=== PATIENT | female | born 1980 | race Hispanic/Latino ===

== ENCOUNTER 2016-11-15 16:50 | Emergency (ER) | payer SELFPAY ==
[2016-11-15] MEDS ORDERED: XOPENEX IH ONE ×3 (16:54→19:49)
--- NOTE | 2016-11-15 17:00 | Emergency Department Report ---
Stated Complaint: DIFF BREATHING Time Seen by Provider: 11/15/16 16:57 - HPI History of Present Illness: Patient was recently treated for Bronchitis one week ago, however symptoms continue to persist. She c/o difficulty breathing with a productive cough - ROS Review of Systems: all other systems are unremarkable except for documentation in HPI - Exam Physical Exam: Gen: well developed and nourished, uncomfortable Resp: even and labored, lungs slightly diminished with wheezes, no rhonchi noted MSE screening note: Focused history and physical exam performed. Due to findings the following was ordered: resp tx and radiology study ordered ED Disposition for MSE Condition: Stable
--- NOTE | 2016-11-15 17:24 | Emergency Department Report ---
[id number]/07/24 17:16 - HPI HPI: This is a 36-year-old female presents to the emergency department with complaint of a one-week history of shortness of breath, mixed dry and productive cough, and now patient has a more recent history of nausea with vomiting, headache and says that she has been coughing so much she is seen some blood in the phlegm. Patient was at a hospital in [place] 5 days ago and was diagnosed with bronchitis and discharged home on azithromycin. She says she isn 't taken his compliantly without any relief. She has a past medical history of endometriosis and asthma. She's been using her home inhaler without any relief. No recent travel or sick contacts at home. She denies tobacco or illicit drug use or abuse. Her primary care doctor is a Dr. Linton. Patient also has a history of mood disorder and anxiety. ED Review of Systems ROS: Stated complaint: DIFF BREATHING Other details as noted in HPI Comment: All other systems reviewed and negative Constitutional: denies: chills, fever Eyes: denies: eye pain, eye discharge, vision change ENT: denies: ear pain, throat pain Respiratory: cough, shortness of breath Cardiovascular: denies: chest pain, palpitations Gastrointestinal: nausea, vomiting. denies: abdominal pain Genitourinary: denies: urgency, dysuria, discharge Musculoskeletal: denies: back pain, joint swelling, arthralgia Skin: denies: rash, lesions Neurological: headache. denies: weakness, numbness, paresthesias Psychiatric: denies: auditory hallucinations, visual hallucinations, homicidal thoughts, suicidal thoughts Physical Exam - Physical Exam Vital Signs: Vital Signs 11/15/16 11/15/16 16:52 17:03 Temperature 98.3 F Pulse Rate 127 H Pulse Rate [ 109 H Anterior Bilateral Throughout] Respiratory 38 H Rate Respiratory 25 H Rate [Anterior Bilateral Throughout] Blood Pressure 91/67 O2 Sat by Pulse 97 Oximetry Physical Exam: GENERAL: The patient is well-developed well-nourished. HEENT: Normocephalic. Atraumatic. Extraocular motions are intact. Patient has moist mucous membranes. Pupils equal reactive to light bilaterally. NECK: Supple. Trachea is midline. CHEST/LUNGS: Clear to auscultation. Mild tachypnea but no accessory muscle use. There is no respiratory distress noted. HEART/CARDIOVASCULAR: Regular. There is mild tachycardia. There is no gallop rub or murmur. ABDOMEN: Abdomen is soft, nontender. Patient has normal bowel sounds. There is no abdominal distention. SKIN: There is no rash. There is no edema. There is no diaphoresis. NEURO: The patient is awake, alert, and oriented. The patient is cooperative. The patient has no focal neurologic deficits. The patient has normal speech. MUSCULOSKELETAL: There is no tenderness or deformity. There is no limitation range of motion. There is no evidence of acute injury. ED Course Vital Signs 11/15/16 11/15/16 16:52 17:03 Temperature 98.3 F Pulse Rate 127 H Pulse Rate [ 109 H Anterior Bilateral Throughout] Respiratory 38 H Rate Respiratory 25 H Rate [Anterior Bilateral Throughout] Blood Pressure 91/67 O2 Sat by Pulse 97 Oximetry ED Medical Decision Making - Lab Data Result diagrams: 11/15/16 17:31 11/15/16 17:31 - EKG Data -: EKG Interpreted by Me EKG shows normal: sinus rhythm, axis, intervals, QRS complexes, ST-T waves Rate: normal - EKG Data When compared to previous EKG there are: previous EKG unavailable Interpretation: normal EKG - Radiology Data Radiology results: image reviewed interpreted by me: Chest x-ray did not show any acute process. Heart is normal shape and size. No effusions. No pneumothorax. No signs of pneumonia seen. - Medical Decision Making 36-year-old presents with complaint of 5 days to 1 week of shortness of breath and lingering cough. Patient does have some abnormal appearing vitals through triage with some tachycardia and tachypnea but the patient has never had any fever or hypoxia. By the time the patient was back in the main portion of the emergency department and I was able to see her, the vitals were greatly improved. The patient herself have very mild tachycardia and tachypnea but did not appear to be in any respiratory distress. There was no accessory muscle use or conversational dyspnea. Patient was given some Solu-Medrol, magnesium and breathing treatments. Patient complained of a headache so she was given a very small amount of pain medication. Since she got the pain medication she was already asking for much more and in much larger doses. It was explained that this is detrimental to her especially in someone who is complaining of shortness of breath but she was adamant about getting more narcotic pain medication. Therefore this prompted me to look into the patient's [facility] prescription monitoring system history. Patient was found to fill 90 Treadwell 10/ 325 mg, 90 lorazepam, monthly Ambien, among other medications. Patient had a chest x-ray that did not show any signs of pneumonia, CHF, pneumothorax or any acute process. Her EKG was completely normal without signs of ST elevation ID, arrhythmia or ischemia. Patient's labs did not show any leukocytosis, electrolyte abnormalities, renal insufficiency. She had a negative d-dimer and a BNP that was about 15. Patient does not appear in any distress. When the patient was notified that she would be treated appropriately for probable bronchitis versus viral URI, she became very upset that she was not getting any narcotic pain medication. She has good follow-up with a primary care doctor but says she cannot afford the $80 to see them. Patient was given another breathing treatment and was going to be treated with a cough suppressant and course of steroids but she decided she would rather sign out AGAINST MEDICAL ADVICE. - Differential Diagnosis bronchitis, URI, pneumonia, CHF, PE Critical Care Time: No Critical care attestation.: If time is entered above; I have spent that time in minutes in the direct care of this critically ill patient, excluding procedure time. ED Disposition Clinical Impression: Bronchitis, Cough, Drug-seeking behavior Disposition: LEFT AGAINST MEDICAL ADVICE Is pt being admited?: No Condition: Stable Instructions: Chronic Bronchitis (ED) Referrals: PRIMARY CARE, [Primary Care Provider] - 3-5 Days Forms: AMA Form Time of Disposition: 21:26
[2016-11-15] MEDS ORDERED: DILAUDID ONE (17:30)
[2016-11-15] MEDS ORDERED: MAGNESIUM SULFATE 2GM/50ML 50 ML IV ONE ×2 (17:31)
[2016-11-15] MEDS ORDERED: DILAUDID IV ONE ×2 (17:32→19:38)
[2016-11-15] MEDS ORDERED: ZOFRAN IV ONE (17:32)
[2016-11-15] MEDS ORDERED: NACL 0.9% 1000 ML 1,000 ML IV ONE (17:32)
[2016-11-15 17:48] LABS: Basophils % (Auto) 0.6 % (0.0-1.8); Eosinophils % (Auto) 1.4 % (0.0-4.3); Hematocrit 43.8 % (30.3-42.9); Hemoglobin 14.7 gm/dl (10.1-14.3); Mean Corpuscular HGB Conc 34 % (30-34); Mean Corpuscular Hemoglobin 32 pg (28-32); Mean Corpuscular Volume 94 fl (79-97); Platelet Count 301 K/mm3 (140-440); Red Blood Count 4.66 M/mm3 (3.65-5.03); White Blood Count 9.1 K/mm3 (4.5-11.0)
--- NOTE | 2016-11-15 19:18 | Admit Criteria Form ---
Admission Criteria Documentation: PULMONARY DISEASE GRG Clinical Indications for Admission to Inpatient Care ( Place 'X' for any and all applicable criteria): Hospital admission is needed for appropriate care of the patient because of ANY ONE of the following(1): [ ]I. Impending or actual respiratory arrest ( Use Respiratory Failure Criteria for severe respiratory disease and long-term mechanical ventilation patients) (4) [X ]II. Severe airflow or ventilation abnormalities (not responsive to emergency and observation care treatment as appropriate) as indicated by ANY ONE of the following(5)(6)(7)(8) : [ ]a) PCO2 > 42 mm Hg (5.6 kPa) and pH < 7.35 (new) [ ]b) Documented PCO2 increase > 5 mm Hg (0.7 kPa) from disease baseline [ ]c) Airflow measurements[A] < 60% of previous best or predicted ( e.g., PEF <300 L/minute) despite intensive emergent treatment[B] [ X]d) Required respiratory treatments that are performable only in acute inpatient setting [ ]III. Severe respiratory findings (not responsive to emergency and observation care treatment as appropriate) including ANY ONE of the following(5)(8)(9): [ ]a) Respiratory distress as indicated by ALL of the following(5)(10): [ ]i) Patient with ANY ONE of the following: [ ]1) Dyspnea (difficulty breathing) [ ]2) Abnormal breathing pattern (eg, chest retractions) [ ]3) Tachypnea [ ]4) Other evidence of difficulty breathing [ ]ii) Evidence of respiratory compromise indicated by ANY ONE of the following: [ ]1) Hypoxemia [ ]2) Altered mental status [ ]3) Other evidence of respiratory compromise (eg, pulmonary edema on chest x-ray) [ ]b) Stridor [ ]c) Gross hemoptysis(11) [ ]d) Acute cyanosis [ ]IV. High-risk pulmonary infection as indicated by ANY ONE of the following( 19)(20)(21)(22): [ ]a) Temperature less than 95 degrees F(35 degrees C) or greater than 103.1 degrees F(39.5 degrees C) [ ]b) Hemodynamic instability that remains after emergency or observation level care (as appropriate) [ ]c) Immunocompromised patient (eg, AIDS, post transplant, neutropenic) [ ]d) History of severe COPD [ ]e) History of severely symptomatic congestive heart failure [ ]f) Other high-risk comorbidity (eg, poorly controlled diabetes, cirrhosis, chronic renal insufficiency) [ ]g) Hypoxemia (new) [ ]h) Outpatient, observation, or recovery facility therapy has failed, is not appropriate, or is not feasible [ ]V. Severe atelectasis or lung collapse(15)(16) [ ]. Tuberculosis requiring inpatient treatment as indicated by ANY ONE of the following(17)(18): [ ]a) New positive acid-fast bacilli sputum smear [ ]b) Positive acid-fast bacilli smear (under current treatment), with ANY ONE of the following: [ ]i) Unexposed household contacts [ ]ii) Infants or immunosuppressed household contacts [ ]iii) Patient unable or unwilling to avoid exposing others [ ]iv) Severe immunocompromised patient (eg, AIDS, post transplant, neutropenic) [ ]VII. Empyema or lung abscess(13)(14) [ ]VIII. Severe pulmonary arterial hypertension or pulmonary vascular disease requiring inpatient care indicated by ANY ONE of the following(24)(25): [ ]a) Initiation or change of vasodilators (IV, subcutaneous, or inhaled) or other vasoactive medications needed [ ]b) IV anticoagulation needed (eg, immediate anticoagulation necessary, alternatives not appropriate) [ ]c) Arterial or pulmonary artery catheter monitoring needed due to infusion or other treatment [ ]IX. Chronic lung disease with severe deterioration (not responsive to emergency and observation care treatment as appropriate) as indicated by ANY ONE of the following (6)(12): [ ]a) SaO2 5% below baseline in patient with chronic hypoxemia [ ]b) New requirement for supplemental oxygen to keep SaO2 at baseline or acceptable level [ ]c) Required supplemental oxygen performable only in acute inpatient setting [ ]d) Severe airflow or ventilation abnormalities [ ]e) Rapid rate of exacerbation onset [ ]f) Previously mobile patient unable to walk between rooms [ ]g) Inability to eat or sleep due to dyspnea [ ]h) Altered mental status [ ]X. Cystic fibrosis with severe deterioration as indicated by ANY ONE of the following(26)(27): [ ]a) Severe exacerbation that does not respond to intensified home therapy [ ]b) Pneumonia [ ]c) Hemoptysis [ ]d) Atelectasis [ ]e) Pneumothorax [ ]f) Respiratory failure [ ]g) Severe exacerbation with patient unable to perform prescribed treatments at home [ ]XI. Severe right heart failure as indicated by ANY ONE of the following(24) (25): [ ]a) Increasing organ failure (eg, liver congestion with significant and worsening or new elevation of transaminases) [ ]b) Anasarca [ ]c) Angina that requires inpatient care (eg, not treatable in emergency or observation level of care) [ ]d) Respiratory distress [ ]e) Syncope [ ]f) SBP < 90 mm Hg (new) [ ]XII. Injury requiring inpatient care (medical) as indicated by ANY ONE of the following(28): [ ]a) Significant inhalation injury (eg, smoke inhalation, other toxic inhalation) (29)(30)(31) [ ]b) Airway obstruction that remains or is unstable after emergency or observation level care(32) [ ]c) Severe pain requiring acute inpatient management [ ]d) Lung contusion [ ]e) Bronchial tree injury [ ]f) Air or fat emboli(33) [ ]g) Other injury not treatable in emergency or observation level care (eg, hemothorax) (34) [ ]XIII. Pulmonary hemorrhage or significant hemoptysis(11)(35)(36) [ ]XIV. Inpatient palliative care needed[C](37)(38)(39)(40) [ ]XV. Complications of lung transplant (eg, rejection, failure, respiratory infection) (23) [ ]XVI. Pulmonary Disease and ANY ONE of the following: [ ]a) General Admission Criteria [ ]b) Pediatric General Admission Criteria The original [facility] [employer] content created by [facility] has been revised. The portions of the content which have been revised are identified through the use of italic text or in bold, and [facility] has neither reviewed nor approved the modified material. All other unmodified content is copyright [facility]. Please see references footnoted in the original [facility] edition 2016 Admission Criteria Met: Yes
[2016-11-15] MEDS ORDERED: NACL 0.9% NEBU ONE (19:51)
[2016-11-15] MEDS ORDERED: BENADRYL ONE (19:53)
[2016-11-15 19:56] LABS: BUN/Creatinine Ratio 13.63; Calcium 7.8 mg/dL (8.4-10.2); Chloride 103.7 mmol/L (98-107); Potassium 4.4 mmol/L (3.6-5.0)
[2016-11-15] MEDS ORDERED: BENADRYL IV ONE (20:03)
[2016-11-15 20:24] VITALS: BP 122/72
--- NOTE | 2016-11-16 09:12 | XRay Report ---
CHEST 2 VIEWS INDICATION: Difficulty breathing. COMPARISON: 07/31/2009 FINDINGS: PA and lateral chest radiographs again demonstrate demonstrate normal cardiomediastinal silhouette and slightly crowded markings towards the bases, likely related to the degree of inspiration. No focal consolidation, pleural effusions or CHF. Unremarkable bones. CONCLUSION: No acute disease. Thank you for the opportunity to participate in this patient's care.
== END 2016-11-15 20:20 | disposition left against medical advice (07) ==
LOC: ED 16:50
DX: J40 Bronchitis, not specified as acute or chronic (principal); Z76.5 Malingerer [conscious simulation]
CPT/HCPCS: 36415; 71020; 80048; 83880; 85025; 85379; 93005; 93010; 94640; 96361; 96365; 96375; 96376; 99284; J1170; J1200; J2405; J2930; J3475; J7030

== ENCOUNTER 2018-02-21 18:21 | Emergency (ER) | payer SELFPAY ==
[2018-02-21] MEDS ORDERED: SUBLIMAZE IV ONE ×2 (18:49→20:30)
[2018-02-21] MEDS ORDERED: NACL 0.9% 1000 ML 1,000 ML IV ONE (18:49)
[2018-02-21] MEDS ORDERED: ZOFRAN IV ONE (18:49)
[2018-02-21 19:18] LABS: Basophils # (Auto) 0.1 K/mm3 (0.0-0.1); Basophils % (Auto) 0.7 % (0.0-1.8); Eosinophils # (Auto) 0.1 K/mm3 (0.0-0.4); Hematocrit 40.1 % (30.3-42.9); Hemoglobin 13.7 gm/dl (10.1-14.3); Lymphocytes % (Auto) 32.3 % (13.4-35.0); Mean Corpuscular HGB Conc 34 % (30-34); Mean Corpuscular Hemoglobin 32 pg (28-32); Mean Corpuscular Volume 94 fl (79-97); Monocytes # (Auto) 0.4 K/mm3 (0.0-0.8); Monocytes % (Auto) 3.5 % (0.0-7.3); Red Blood Count 4.28 M/mm3 (3.65-5.03); Red Cell Distribution Width 12.9 % (13.2-15.2)
[2018-02-21 19:29] LABS: BUN/Creatinine Ratio 13; Blood Urea Nitrogen 10 mg/dL (7-17); Calcium 8.8 mg/dL (8.4-10.2); Hemolysis Index 7
[2018-02-21 20:23] LABS: Bacteria,Urine 1+ /HPF (Negative); Bilirubin,Urine NEG (Negative); Blood,Urine SM (Negative); Color,Urine Yellow (Yellow); Mucus,Urine FEW /HPF; Protein,Urine <15 mg/dL mg/dL (Negative); Urobilinogen,Urine < 2.0 mg/dL (<2.0)
[2018-02-21 20:37] LABS: Cannabinoid Screen,Urine PRESUMPTIVE NEGATIVE; Cocaine Screen,Urine PRESUMPTIVE NEGATIVE; Methadone Screen,Urine PRESUMPTIVE NEGATIVE; Opiate Screen,Urine PRESUMPTIVE NEGATIVE
[2018-02-21 20:38] LABS: Platelet Count 245 K/mm3 (140-440)
[2018-02-21 20:57] LABS: HCG Qualitative,Urine Negative (Negative)
[2018-02-21 21:01] LABS: Amphetamine Screen,Urine PRESUMPTIVE POSITIVE; Benzodiazepines Screen,Urine PRESUMPTIVE POSITIVE
[2018-02-21] MEDS ORDERED: NACL ONE (21:03)
[2018-02-21] MEDS ORDERED: ZOFRAN ONE (21:06)
--- NOTE | 2018-02-21 21:30 | Cat Scan Report ---
FINAL REPORT PROCEDURE: CT HEAD/BRAIN WO CON TECHNIQUE: Computerized tomography of the head was performed without contrast material. HISTORY: syncope head injury-kicked by horse COMPARISON: No prior studies are available for comparison. FINDINGS: Brain: Brain density appears normal. No evidence of intracranial hemorrhage. No parenchymal hemorrhage, mass lesions or mass effect are seen. No abnormal extraxial fluid collects or masses are seen. Ventricles: Ventricles are normal size and are midline. Bone Windows: No evidence of skull fracture. Paranasal sinuses: Minimal mucosal thickening seen inferiorly in the right maxillary sinus. Visualized portions of the paranasal sinuses otherwise are clear. Mastoid air cells: Clear IMPRESSION: Negative unenhanced CT scan of the brain. No evidence of intracranial hemorrhage or skull fracture. Minimal paranasal sinus disease as described.
--- NOTE | 2018-02-21 21:41 | Cat Scan Report ---
FINAL REPORT PROCEDURE: CT LUMBAR SPINE WO CON TECHNIQUE: Computerized axial tomography of the lumbar spine was performed from T12 to the sacrum without contrast material. HISTORY: fall from horse. Pain. COMPARISON: No prior studies are available for comparison. FINDINGS: No fracture or subluxation is visualized. The posterior elements appear intact. No evidence of spondylolysis or spondylolisthesis. There is a mild diffuse posterior disc bulge at the L4-5 level without focal disc herniation or spinal stenosis. There is a lytic lesion visualized in the L2 vertebral body with prominent vertically oriented trabecula I consistent with vertebral body hemangioma. IMPRESSION: No evidence of fracture or subluxation. Mild disc bulge L4-5 level without focal disc herniation or spinal stenosis. Vertebral body hemangioma suspected in the L2 vertebral body.
--- NOTE | 2018-02-21 21:46 | Cat Scan Report ---
FINAL REPORT PROCEDURE: CT CERVICAL SPINE WO CON TECHNIQUE: Computerized tomography of the cervical spine was performed from the skull base to T1 without contrast material. HISTORY: neck pain, syncope. Fell from horse. COMPARISON: No prior studies are available for comparison. FINDINGS: No fracture or subluxation is seen. The prevertebral soft tissues appear normal. Posterior elements are intact. Bone density appears normal. There is mild to moderate facet arthritis visualized at C7-T1 on the left. There is anterior posterior osteophytic spurring at C5-C6. Posterior osteophytic spurs overlie a mild disc bulge obscuring a portion the anterior epidural space. There is no focal disc herniation or spinal stenosis identified. Small anterior osteophytic spurs also visualized C6-C7. Disc spaces otherwise are unremarkable. IMPRESSION: No evidence of fracture or subluxation. Facet arthritis and degenerative disc disease as described..
--- NOTE | 2018-02-21 22:19 | Cat Scan Report ---
FINAL REPORT PROCEDURE: CT CHEST W CON TECHNIQUE: Computerized axial tomography of the chest was performed during the IV injection of iodinated nonionic contrast. HISTORY: fall from horse COMPARISON: No prior studies are available for comparison. TECHNICAL QUALITY: Satisfactory. FINDINGS: Pulmonary outflow tract, right and left main pulmonary arteries and their proximal branches: No abnormality is seen. Pericardium: No evidence of pericardial effusion. Thoracic aorta: No evidence of aneurysmal dilatation or dissection. Coronary arteries: Are unremarkable. Mediastinum and hilar regions: There is hazy soft tissue density in the anterior mediastinum conforming to the contours of the anterior mediastinum. The appearance suggest a small amount of residual thymic tissue. No definite hemorrhage is seen in the mediastinum. Lung Palumbo: There is a small amount of dependent atelectasis. No effusions or pneumothorax visualized. No infiltrates or masses are identified. Upper abdomen: The gallbladder is surgically absent. No acute or focal abnormalities are seen in the upper abdomen. Other: There is mild cortical irregularity involving the anterior lateral aspect of the right and left 4th ribs. Correlation with physical exam recommended. This is very symmetric and may represent artifact from breathing motion. Minimally displaced fractures not entirely excluded. IMPRESSION: Cortical irregularity anterior lateral aspect right and left 4th ribs may be an artifact from breathing motion. Recommend correlation with physical exam to exclude a minimally displaced fractures. Small amount of dependent atelectasis is visualized. Small amount of residual thymic tissue appears to be present in the anterior mediastinum. Prior cholecystectomy. No other abnormalities are identified.
--- NOTE | 2018-02-21 22:27 | Cat Scan Report ---
FINAL REPORT PROCEDURE: CT ABDOMEN PELVIS W CON TECHNIQUE: Computerized axial tomography of the abdomen and pelvis was performed after the IV injection of iodinated nonionic contrast. HISTORY: fall from horse COMPARISON: No prior studies are available for comparison. FINDINGS: Lower Lung leiva: Dependent atelectasis visualized. No effusions are seen. Upper Abdomen: Gallbladder is surgically absent. The liver is unremarkable. Adrenal glands, the pancreas and spleen are unremarkable. No evidence of organ laceration. Kidneys, Ureters and Urinary bladder: No abnormalities are seen. Retroperitoneum: Abdominal aorta appears normal. No aneurysm is seen. No retroperitoneal hemorrhage is visualized Nonspecific subcentimeter lymph nodes are seen in the retroperitoneum. No pathologically enlarged lymph nodes are identified. Bowel: No abnormality is seen. No evidence of bowel obstruction ascites or free intraperitoneal gas. Normal-appearing appendix is seen in the right lower quadrant. Reproductive organs: There is an irregular small cystic area visualized in the right ovary suggesting a recently ruptured follicle. Right and left adnexa otherwise are unremarkable. Minimal nonspecific free fluid is seen in the cul-de-sac. Uterine density is mildly heterogeneous. I cannot exclude small uterine fibroids. Other: No acute bony abnormalities are identified. Vertebral body hemangioma appears to be visualized at the L2 level. IMPRESSION: No evidence of organ laceration or fracture. Irregular cystic structure seen right ovary suggesting recently ruptured follicle. Prior cholecystectomy.
--- NOTE | 2018-02-21 22:44 | Emergency Department Report ---
ED Trauma HPI - General Chief Complaint: Multiple Trauma Stated Complaint: KICKED BY HORSE Time Seen by Provider: 02/21/18 18:29 - History of Present Illness Occurred: just prior to arrival Allergies/Adverse Reactions: Allergies ketorolac tromethamine [From Toradol] Allergy (Verified 02/21/18 18:24) Hives morphine Allergy (Verified 02/21/18 18:24) Shortness of Breath prochlorperazine [From Compazine] Allergy (Verified 02/21/18 18:24) Hives prochlorperazine edisylate [From Compazine] Allergy (Verified 02/21/18 18:24) Hives prochlorperazine maleate [From Compazine] Allergy (Verified 02/21/18 18:24) Hives ED Review of Systems ROS: Stated complaint: KICKED BY HORSE Other details as noted in HPI ED Past Medical Hx - Past Medical History Hx Asthma: Yes Additional medical history: endometrosis - Surgical History Past Surgical History?: Yes Hx Cholecystectomy: Yes Additional Surgical History: tubal ligation - Social History Smoking Status: Current Every Day Smoker Substance Use Type: Alcohol ED Physical Exam - General Limitations: No Limitations ED Course Vital Signs 02/21/18 02/21/18 02/21/18 18:24 18:28 18:30 Temperature 98 F Pulse Rate 85 67 77 Respiratory 18 19 13 Rate Blood Pressure 107/82 Blood Pressure [Right] O2 Sat by Pulse 99 Oximetry 02/21/18 02/21/18 02/21/18 19:00 19:25 19:30 Temperature 98.3 F Pulse Rate 75 58 L 60 Respiratory 11 L 21 23 Rate Blood Pressure 96/51 Blood Pressure 96/51 [Right] O2 Sat by Pulse 98 97 98 Oximetry 02/21/18 02/21/18 02/21/18 20:00 20:30 21:12 Temperature Pulse Rate 70 67 Respiratory 12 11 L 16 Rate Blood Pressure 114/77 98/58 Blood Pressure [Right] O2 Sat by Pulse 100 97 Oximetry 02/21/18 02/21/18 21:42 22:25 Temperature Pulse Rate Respiratory 16 16 Rate Blood Pressure Blood Pressure [Right] O2 Sat by Pulse Oximetry ED Medical Decision Making - Lab Data Result diagrams: 02/21/18 17:50 02/21/18 17:50 Critical care attestation.: If time is entered above; I have spent that time in minutes in the direct care of this critically ill patient, excluding procedure time. ED Disposition Disposition: DC-01 TO HOME OR SELFCARE Condition: Stable Additional Instructions: return sooner if worse or if further concerns Referrals: LUISA STOREY MD [Primary Care Provider] - 3-5 Days
[2018-02-21] MEDS ORDERED: NORCO 5/325 PO ONE (23:05)
[2018-02-21 23:55] VITALS: BP 101/45
== END 2018-02-22 00:50 | disposition home or self-care (01) ==
LOC: ED 18:21
DX: M54.2 Cervicalgia (principal); R10.2 Pelvic and perineal pain; R07.89 Other chest pain; M54.6 Pain in thoracic spine; J45.909 Unspecified asthma, uncomplicated; F17.200 Nicotine dependence, unspecified, uncomplicated; Z98.51 Tubal ligation status; Z90.49 Acquired absence of other specified parts of digestive tract; W55.12XA Struck by horse, initial encounter; Y93.89 Activity, other specified; Y92.89 Other specified places as the place of occurrence of the external cause; Y99.8 Other external cause status
CPT/HCPCS: 36415; 70450; 71260; 72125; 72131; 74177; 80048; 80307; 81001; 81025; 85025; 96361; 96374; 96375; 99284; J2405; J3010; J7030; Q9967